=== PATIENT | male | born 1980 | race African-American/Black ===

== ENCOUNTER 2024-07-23 17:17 | Emergency (ER) | payer MEDICAID ==
[2024-07-23] MEDS ORDERED: Ondansetron 4 MG Tab.DIS PO ONE (17:18)
[2024-07-23] MEDS: Ondansetron 4 MG/2 ML SDV IVPUSH ONE (18:33)
[2024-07-23] MEDS: Sodium Chloride 0.9% 1,000 ML IV ONE ×2 (18:33→19:25)
[2024-07-23 18:38] LABS: BASOPHILS ABSOLUTE AUTO 0.1 x10-3/uL (0.0-0.3); BASOPHILS PERCENT AUTO 0.4 % (0.3-3.8); EOSINOPHILS PERCENT AUTO 0.1 % (0.1-6.8); LYMPHOCYTES ABSOLUTE AUTO 2.7 x10-3/uL (0.5-4.5); LYMPHOCYTES PERCENT AUTO 22.9 % (15.8-45.3); MEAN CORPUSCULAR HEMOGLOBIN 26.5 pg (27.0-33.3); MEAN CORPUSCULAR HGB CONC 33.3 g/dL (28.7-35.3); MEAN CORPUSCULAR VOLUME 79.5 fL (80.8-98.7); MEAN PLATELET VOLUME 10.1 fL (6.7-11.0); MONOCYTES ABSOLUTE AUTO 0.8 x10-3/uL (0.0-1.2); MONOCYTES PERCENT AUTO 6.5 % (5.5-15.2); NEUTROPHILS ABSOLUTE AUTO 8.4 x10-3/uL (1.7-6.9); NEUTROPHILS PERCENT AUTO 70.1 % (40.3-71.8); PLATELET COUNT,PLT 259 x10(3)uL (117-477); RED BLOOD CELL COUNT 5.28 x10(6)uL (3.90-5.90); RED CELL DISTRIBUTION WIDTH 15.1 % (12.4-15.0)
[2024-07-23 18:56] LABS: ALANINE AMINOTRANSFERASE,ALT 21 U/L (12-36); ALBUMIN 4.7 g/dL (3.5-5.2); ALKALINE PHOSPHATASE 61 IU/L (56-112); ASPARTATE AMNIOTRANSFERASE,AST 17 IU/L (5-25); BILIRUBIN TOTAL 0.6 mg/dL (0.1-1.3); BLOOD UREA NITROGEN,BUN 41 mg/dL (7-18); BUN/CREATININE RATIO 18.6 (9-20); CALCIUM 9.6 mg/dL (8.6-10.2); CARBON DIOXIDE,CO2 23 mmol/L (21-32); CHLORIDE,CL 97 mmol/L (100-110); EST CRCL DRUG DOSING (CG) 41.02 mL/min; ESTIMATED GFR 37 mL/min (>60); GLUCOSE RANDOM 271 mg/dL (80-116); POTASSIUM,K 4.8 mmol/L (3.5-5.3); PROTEIN TOTAL,TP 9.4 g/dL (6.0-8.0); SODIUM,NA 135 mmol/L (135-145)
[2024-07-23 18:58] LABS: CREATININE 2.2 mg/dL (0.70-1.30)
== END 2024-07-23 20:30 | disposition home or self-care (01) ==
LOC: FB.ED 17:17
DX: K52.9 Noninfective gastroenteritis and colitis, unspecified (principal); N17.9 Acute kidney failure, unspecified; E11.9 Type 2 diabetes mellitus without complications; I10 Essential (primary) hypertension
CPT/HCPCS: 36415; 80053; 82947; 83690; 85025; 96361; 96374; 99284; J2405; J7030; Q0162

== ENCOUNTER 2024-07-24 13:16 | Emergency (ER) | payer MEDICAID ==
[2024-07-24 14:03] LABS: BASOPHILS PERCENT AUTO 0.4 % (0.3-3.8); HEMATOCRIT 40.8 % (38.3-50.1); HEMOGLOBIN 13.7 g/dL (12.9-17.7); LYMPHOCYTES ABSOLUTE AUTO 2.9 x10-3/uL (0.5-4.5); LYMPHOCYTES PERCENT AUTO 24.5 % (15.8-45.3); MEAN CORPUSCULAR HEMOGLOBIN 26.7 pg (27.0-33.3); MEAN CORPUSCULAR HGB CONC 33.6 g/dL (28.7-35.3); MEAN CORPUSCULAR VOLUME 79.5 fL (80.8-98.7); MEAN PLATELET VOLUME 9.6 fL (6.7-11.0); MONOCYTES ABSOLUTE AUTO 0.8 x10-3/uL (0.0-1.2); MONOCYTES PERCENT AUTO 7.1 % (5.5-15.2); NEUTROPHILS ABSOLUTE AUTO 7.9 x10-3/uL (1.7-6.9); PLATELET COUNT,PLT 250 x10(3)uL (117-477); RED BLOOD CELL COUNT 5.14 x10(6)uL (3.90-5.90); RED CELL DISTRIBUTION WIDTH 15.2 % (12.4-15.0); WHITE BLOOD CELL COUNT,WBC 11.7 x10-3/uL (3.2-10.1)
[2024-07-24 14:06] LABS: BLOOD UREA NITROGEN,BUN 28 mg/dL (7-18); BUN/CREATININE RATIO 15.6 (9-20); CALCIUM 9.4 mg/dL (8.6-10.2); CARBON DIOXIDE,CO2 21 mmol/L (21-32); CHLORIDE,CL 100 mmol/L (100-110); CREATININE 1.8 mg/dL (0.70-1.30); ESTIMATED GFR 47 mL/min (>60); GLUCOSE RANDOM 216 mg/dL (80-116); POTASSIUM,K 4.9 mmol/L (3.5-5.3); SODIUM,NA 136 mmol/L (135-145)
[2024-07-24 14:11] LABS: A/G RATIO 0.9; ALANINE AMINOTRANSFERASE,ALT 20 U/L (12-36); ALBUMIN 4.3 g/dL (3.5-5.2); ALKALINE PHOSPHATASE 63 IU/L (56-112); ASPARTATE AMNIOTRANSFERASE,AST 14 IU/L (5-25); BILIRUBIN TOTAL 0.8 mg/dL (0.1-1.3); PROTEIN TOTAL,TP 8.9 g/dL (6.0-8.0)
[2024-07-24] MEDS: Sodium Chloride 0.9% 1,000 ML IV ONE (14:50)
[2024-07-24] MEDS: Ondansetron 4 MG/2 ML SDV IVPUSH ONE (14:50)
== END 2024-07-24 16:05 | disposition home or self-care (01) ==
LOC: FB.ED 13:16
DX: K52.9 Noninfective gastroenteritis and colitis, unspecified (principal); E11.9 Type 2 diabetes mellitus without complications; F17.200 Nicotine dependence, unspecified, uncomplicated; Z79.899 Other long term (current) drug therapy; Z90.49 Acquired absence of other specified parts of digestive tract
CPT/HCPCS: 36415; 80053; 83690; 85025; 96361; 96374; 99284; J2405; J7030

== ENCOUNTER 2024-07-25 07:18 | Emergency (ER) | payer MEDICAID ==
[2024-07-25] MEDS: Prochlorperazine 5 MG Tab PO STA (08:07)
== END 2024-07-25 08:49 | disposition home or self-care (01) ==
LOC: FB.ED 07:18
DX: K52.9 Noninfective gastroenteritis and colitis, unspecified (principal); F17.210 Nicotine dependence, cigarettes, uncomplicated; I12.9 Hypertensive chronic kidney disease with stage 1 through stage 4 chronic kidney disease, or unspecified chronic kidney disease; N18.9 Chronic kidney disease, unspecified; E78.00 Pure hypercholesterolemia, unspecified; E11.22 Type 2 diabetes mellitus with diabetic chronic kidney disease; Z90.49 Acquired absence of other specified parts of digestive tract; Z79.899 Other long term (current) drug therapy
CPT/HCPCS: 99283; Q0164